=== PATIENT | male | born 1970 | race Caucasian/White ===

== ENCOUNTER 2022-09-21 16:34 | Emergency (ER) | payer MEDICAID, OTHER ==
[~2022-09-21] VITALS: Ht 180.3 cm; Wt 108.9 kg
[2022-09-21 17:04] VITALS: BP 147/85
[2022-09-21] MEDS ORDERED: BACITRACIN OINT 500 UNITS/GM PKT TP ONE (17:20)
[2022-09-21] MEDS ORDERED: ACETAMINOPHEN EXTRA STRENGTH 500 MG TAB PO ONE (17:20)
[2022-09-21] MEDS ORDERED: IBUPROFEN 600 MG TAB PO ONE (17:20)
--- NOTE | 2022-09-21 17:31 | NUR ---
LATERAL WOUND TO R FOOT IRRIGATED WITH BETADINE X NS. + CMS.
--- NOTE | 2022-09-21 18:03 | NUR ---
CRUTCHES GIVEN AND PT RETURNED SAFE DEMONSTRATION. CRUTCHES ADJUSTED TO HEIGHT AND ARM LENGTH. WOUND TO R FOOT DRESSED WITH NON ADHERENT X 2, AND BANDAGED WITH ULYSSES WRAP. + CMS
[2022-09-21] MEDS ORDERED: BACI-416 TP (18:08)
[2022-09-21] MEDS ORDERED: IBUP-2213 PO (18:08)
[2022-09-21] MEDS ORDERED: ACET-10509 PO (18:08)
--- NOTE | 2022-09-21 18:32 | NUR ---
Patient discharged with v/s stable. Written and verbal after care instructions given and explained. Patient alert, oriented and verbalized understanding of instructions. Ambulatory with steady gait. All questions addressed prior to discharge. ID band removed. Patient advised to follow up with PMD. Rx of MOTRIN, TYLENOL, BACITRACIN given. Patient educated on indication of medication including possible reaction and side effects. Opportunity to ask questions provided and answered.
== END 2022-09-21 18:32 | disposition home or self-care (01) ==
LOC: MED 16:34
DX: T25.221A Burn of second degree of right foot, initial encounter (principal); I10 Essential (primary) hypertension; Z79.2 Long term (current) use of antibiotics; Z79.899 Other long term (current) drug therapy; Z79.1 Long term (current) use of non-steroidal anti-inflammatories (NSAID); X11.8XXA Contact with other hot tap-water, initial encounter; Y93.89 Activity, other specified; Y92.89 Other specified places as the place of occurrence of the external cause; Y99.0 Civilian activity done for income or pay
CPT/HCPCS: 16020; 90471; 90715; 99283

== ENCOUNTER 2022-09-25 21:05 | Emergency (ER) | payer OTHER ==
[~2022-09-25] VITALS: Ht 185.4 cm; Wt 89.8 kg
[~2022-09-25 21:05] MED LIST: ACET-10509 PO; BACI-416 TP; IBUP-2213 PO
[2022-09-25 21:10] VITALS: BP 145/90
--- NOTE | 2022-09-25 21:13 | NUR ---
TO LOBBY A/W BED AMBULATORY
--- NOTE | 2022-09-25 22:39 | NUR ---
PATIENT LEFT WITHOUT BEING SEEN BY DR. PHILIPPE. NO FURTHER CARE PROVIDED FOR PATIENT.
== END 2022-09-25 22:39 | disposition left against medical advice (07) ==
LOC: MED 21:05
DX: Z48.00 Encounter for change or removal of nonsurgical wound dressing (principal); Z53.21 Procedure and treatment not carried out due to patient leaving prior to being seen by health care provider
CPT/HCPCS: 99281

== ENCOUNTER 2022-09-26 13:26 | Emergency (ER) | payer OTHER | END 2022-09-26 14:45 | disposition left against medical advice (07) | LOC: MED 13:26 | DX: Z53.21 Procedure and treatment not carried out due to patient leaving prior to being seen by health care provider (principal) ==